=== PATIENT | male | born 1960 | race Caucasian/White ===

== ENCOUNTER 2019-03-18 10:29 | Observation (INO) ==
[2019-03-18] MEDS ORDERED: HumuLIN R SUBCUT PRN (11:53)
[2019-03-18 12:13] LABS: BASOPHILS % (AUTO) 0.5 % (0.2-1.0); EOSINOPHILS # (AUTO) 0.1 x10^3/uL (0.0-0.2); EOSINOPHILS % (AUTO) 1.4 % (0.9-2.9); HEMATOCRIT 39.7 % (42.0-54.0); HEMOGLOBIN 14.2 g/dL (13.5-18.0); LYMPHOCYTES # (AUTO) 2.1 X10^3/uL (1.3-2.9); MEAN CORPUSCULAR HEMOGLOBIN 31.4 pg (27.0-34.0); MEAN CORPUSCULAR HGB CONC 35.8 g/dL (33.0-35.0); MEAN CORPUSCULAR VOLUME 87.6 fL (80.0-100.0); MEAN PLATELET VOLUME 7.6 fL (7.4-11.0); MONOCYTES # (AUTO) 0.6 x10^3/uL (0.3-0.8); MONOCYTES % (AUTO) 8.3 % (0.0-13.0); NEUTROPHILS # (AUTO) 4.2 x10^3/uL (2.2-4.8); NEUTROPHILS % (AUTO) 59.8 % (42.0-75.0); PLATELET COUNT 242 X10^3/uL (150.0-450.0); RED BLOOD COUNT 4.53 X10^6/uL (4.7-6.0)
[2019-03-18 12:31] LABS: BLOOD UREA NITROGEN 15 mg/dL (7-18); CALCIUM 8.9 mg/dL (8.5-10.1); CARBON DIOXIDE 26.9 mmol/L (21-32); CHLORIDE 101 mmol/L (98-107); COR NA(FOR HYPERGLY) 140 mmol/L (136-145); CREATININE 0.86 mg/dL (0.70-1.30); SODIUM 139 mmol/L (136-145); TROPONIN I < 0.02 ng/mL (0-1.5); eGFR NON BLACK RACES > 60 (>60)
[2019-03-18 12:35] LABS: ALANINE AMINOTRANSFERASE 35 Units/L (12-78); ALBUMIN 3.9 g/dL (3.4-5.0); ALKALINE PHOSPHATASE 48 Units/L (46-116); ASPARTATE AMINO TRANSFERASE 15 Units/L (15-37); CKMB % 1.6 % (<4); CREATINE KINASE 62 Units/L (39-308); CREATINE KINASE MB < 1.0 ng/mL (0-4.0); TOTAL PROTEIN 7.1 g/dL (6.4-8.2)
[2019-03-18] MEDS: NS 1000 ML 1,000 ML IV SCH (13:59)
--- NOTE | 2019-03-18 14:51 | VAS ---
HISTORY: Possible TIA, hypertension, hyperlipidemia Study: Bilateral carotid Doppler ultrasound Comparison: No priors Technique: Grayscale, color and duplex Doppler ultrasound evaluation of the cervical carotid arteries is provided. Findings: Vertebral in both carotid arteries flow cephalad. A flow signal from the left vertebral is not detected. This may be on a technical basis or may simply indicate right-sided vertebral dominance. Peak systolic arterial velocity in the right ICA is 87.2 cm 2nd an ICA/CCA ratio 0.3. Peak systolic arterial velocity in the left ICA is 100.2 centimeters/second with an ICA/CCA ratio of 1.36. IMPRESSION: No hemodynamically significant stenosis is seen. Flow signal from the left vertebral artery is not detected today. This may be on a technical basis or may simply indicate right-sided vertebral dominance. Reported By:
--- NOTE | 2019-03-18 15:03 | US ---
HISTORY: Right upper quadrant pain Study: Right upper quadrant abdominal ultrasound Comparison: No priors Technique: Multiple conner scale, duplex and color flow Doppler images of the right upper quadrant were obtained. Findings: The liver is enlarged measuring 18.8 cm in length. There is diffuse fatty change.. No focal intraparenchymal mass or intrahepatic biliary ductal dilatation can be observed. The gallbladder fails to demonstrate evidence for cholelithiasis or layering sludge. The common bile duct is unremarkable measuring 1.5 mm. No pericholecystic fluid or gallbladder wall thickening can be observed. Hepatic and portal venous flow directions are normal. The right kidney appears normal in size without focal parenchymal mass or nephrolithiasis. The right kidney measurers 10.48 cm in length. Cortical thickness is 1.78 cm. Resistive index is 0.66.. No hydronephrosis or perirenal fluid can be observed. The pancreas is normal. IMPRESSION: Enlarged liver with diffuse steatosis. No liver mass or ductal ectasia is seen. Normal appearing gallbladder, pancreas and right kidney. Reported By:
--- NOTE | 2019-03-18 15:29 | CT ---
History: Paresthesias left face Exam: CT head without contrast Comparison: None Technique: Routine transaxial images were obtained through the brain without contrast. Automated dose control was utilized. Findings: The ventricles are normal. There is no intracranial hemorrhage or edema there is no extra-axial fluid collection or mass. The bones are intact. The midline structures are unremarkable. IMPRESSION: No acute intracranial abnormality seen. Reported By:
[2019-03-18 16:38] VITALS: BMI 40.4
[2019-03-18] MEDS: ASPIRIN EC 81 MG PO SCH (16:47)
--- NOTE | 2019-03-18 17:54 | DR.H&P ---
H&P - History & Physical for Day of: H&P Date: 03/18/19 - Chief Complaint Chief Complaint: left side facial numbness, weakness, dizzy - History of Present Illness History of Present Illness: PT IS 59 WM DIRECT ADMIT FROM DR RODRÍGUEZ OFFICE WI TH CO WOKE UP WITH NUMBNESS TO LEFT SIDE FACE, AROUND HIS MOUTH. PT STATES HE FELT FUNNY, DIZZY. PT CO INCREASED FATIGUE WITH EPISODES OF CHEST PAIN RELATED TO GAS. PT HAS PMH OF DM, HTN, HYPERLIPIDEMIA AND FAMILY HX OF CVD. PT IS CURRENTLY ON METFORMIN FOR BS, BP MEDICATION AND STATIN. PT REPORTS INCREASED PALPITATIONS AND SEVILLA. PT CO EPISODES OF VISION CHANGES, RELATED TO AGE. PT RECENTLY HAD ANNUAL LABS, BP HAS BEEN RUNNING HIGHER. PT HAD EKG IN OFFICE THIS AM, WITH NSR. PT ADMITTED FOR EVALUATION OF ACUTE ILLNESS. - Past Medical History Past Medical History: Anxiety, Arthritis, Diabetes, Dyslipidemia, GERD, Hypertension - Past Surgical History Surgical History: Tonsillectomy - Family History Family Medical History: [place], Hypertension - Social History Does patient currently use any type of tobacco product: No Have you used tobacco products in the last 12 months: No Type of Tobacco Use: None Does any household member use tobacco: No Alcohol Use: None Drug Use: Prescription Drugs - Medications Home Medications: levofloxacin [From Levaquin] Allergy (Verified 03/18/19 11:06) CONTINUE taking the following medications metformin 500 mg PO DAILY 03/18/19 [History] metoprolol succinate 25 mg PO DAILY 03/18/19 [History] valsartan-hydrochlorothiazide 1 tab PO DAILY 03/18/19 [History] - Review of Systems Constitutional: Weakness, Malaise Eyes: No Symptoms Reported ENT: No Symptoms Reported Respiratory: SOB with Excertion Cardiovascular: Palpitations, Edema, Light Headedness Gastrointestinal: Nausea Genitourinary: No Symptoms Reported Musculoskeletal: No Symptoms Reported Skin: No Symptoms Reported Neurological: Weakness, Numbness - Physical Exam Vital Signs: Temperature 98.0 F Pulse Rate [Left Brachial] 52 Respiratory Rate 18 Blood Pressure [Left Arm] 139/82 O2 Sat by Pulse Oximetry 97 Oriented: Normal Eyes: Normal Ear: Normal Nose: Normal Throat: Normal Respiratory: Clear Throughout Cardiovascular: Normal, Edema : Normal Auscultation: Bowel Sounds: Normal Palpation: Normal Tenderness: RUQ, Epigastric, Mild Skin: Normal Musculoskeletal: Normal Psychiatric: Anxiety Affect: Anxious Speech Pattern: Clear, Appropriate - Assessment/Plan (1) Facial paresthesia Status: Acute Plan: ADMIT, CT HEAD ON ADMISSION CE AND EKG. CXR, CAROTID ARTERY US R/O CAROTID ARTERY STENOSIS,CTA CAROTIDS PENDING ABNORMAL US RESULTS. ADMISSION LABS CBC CMP UA. BP AND CARDIAC MONITORING. OVERNIGHT PULSE OX (2) Dizziness Status: Acute (3) Atypical chest pain Status: Acute (4) Hypertension Status: Acute (5) Hyperlipidemia Status: Acute (6) Diabetes Status: Acute (7) Visual disturbance Status: Acute - Allergies Allergies/Adverse Reactions: Allergies Allergy/AdvReac Type Severity Reaction Status Date / Time levofloxacin [From Levaquin] Allergy Verified 03/18/19 11:06
[2019-03-18] MEDS ORDERED: GLUCOPHAGE PO SCH (18:00)
[2019-03-18] MEDS ORDERED: GLUCOPHAGE ONE (18:47)
[2019-03-18] MEDS: LOVENOX INJ 40 MG SYR SC SCH (18:51)
[2019-03-18] MEDS ORDERED: SNACK - Diabetic Appropriate PO SCH (20:00)
[2019-03-18] MEDS: TOPROL XL PO SCH (21:39)
[2019-03-19] MEDS ORDERED: NS 100 ML IV 100 ML IV ONE (01:16)
[2019-03-19] MEDS: NS 1000 ML 1,000 ML IV SCH ×2 (05:19→07:59)
[2019-03-19 05:25] LABS: ALANINE AMINOTRANSFERASE 34 Units/L (12-78); ALBUMIN 3.4 g/dL (3.4-5.0); ALKALINE PHOSPHATASE 50 Units/L (46-116); ASPARTATE AMINO TRANSFERASE 13 Units/L (15-37); BLOOD UREA NITROGEN 18 mg/dL (7-18); CALCIUM 8.4 mg/dL (8.5-10.1); CHLORIDE 103 mmol/L (98-107); COR NA(FOR HYPERGLY) 141 mmol/L (136-145); SODIUM 140 mmol/L (136-145); TOTAL PROTEIN 6.5 g/dL (6.4-8.2); eGFR NON BLACK RACES > 60 (>60)
[2019-03-19 05:29] LABS: BASOPHILS % (AUTO) 0.5 % (0.2-1.0); EOSINOPHILS # (AUTO) 0.1 x10^3/uL (0.0-0.2); EOSINOPHILS % (AUTO) 1.8 % (0.9-2.9); HEMOGLOBIN 13.7 g/dL (13.5-18.0); LYMPHOCYTES # (AUTO) 2.3 X10^3/uL (1.3-2.9); LYMPHOCYTES % (AUTO) 28.2 % (21.0-51.0); MEAN CORPUSCULAR HEMOGLOBIN 31.4 pg (27.0-34.0); MEAN CORPUSCULAR VOLUME 89.6 fL (80.0-100.0); MEAN PLATELET VOLUME 8.8 fL (7.4-11.0); MONOCYTES # (AUTO) 0.7 x10^3/uL (0.3-0.8); MONOCYTES % (AUTO) 8.6 % (0.0-13.0); NEUTROPHILS # (AUTO) 4.9 x10^3/uL (2.2-4.8); NEUTROPHILS % (AUTO) 60.9 % (42.0-75.0); PLATELET COUNT 238 X10^3/uL (150.0-450.0); RED BLOOD COUNT 4.36 X10^6/uL (4.7-6.0); WHITE BLOOD COUNT 8.1 X10^3/uL (3.6-10.0)
[2019-03-19] MEDS ORDERED: MAGNESIUM SULFATE 1 GRAM/100 mL PREMIX 1 GM/100 ML BAG IV PRN (07:15)
[2019-03-19] MEDS ORDERED: K-RIDER 10 MEQ/NS 100 ML 10 MEQ/100 ML BAG IV PRN (07:15)
[2019-03-19] MEDS ORDERED: KLOR-CON PO PRN (07:15)
[2019-03-19] MEDS ORDERED: POTASSIUM CHLORIDE LIQ 20 MEQ UDC PO PRN (07:15)
[2019-03-19] MEDS ORDERED: K-DUR TAB 20 MEQ PO PRN (07:15)
[2019-03-19] MEDS ORDERED: MICRO K EXTEN CAP 10 MEQ PO PRN (07:15)
[2019-03-19] MEDS ORDERED: POTASSIUM CHL 40 MEQ/NS 0.45% 500 ML IV PRN (07:15)
[2019-03-19] MEDS ORDERED: POTASSIUM CHL 60 MEQ/NS 0.45% 500 ML IV PRN (07:15)
[2019-03-19 07:36] LABS: CKMB % 1.8 % (<4); CREATINE KINASE 57 Units/L (39-308); CREATINE KINASE MB < 1.0 ng/mL (0-4.0); TROPONIN I < 0.02 ng/mL (0-1.5)
[2019-03-19] MEDS: ASPIRIN EC 81 MG PO SCH ×3 (07:45→08:01)
[2019-03-19] MEDS: HYDROCHLOROTHIAZIDE 25 MG TAB PO SCH ×2 (07:45→08:01)
[2019-03-19] MEDS: DIOVAN TAB 160 MG PO SCH ×2 (07:46→08:01)
[2019-03-19] MEDS ORDERED: K-DUR TAB 20 MEQ PO ONE (07:47)
[2019-03-19] MEDS: TOPROL XL PO SCH ×2 (07:48→08:02)
[2019-03-19] MEDS ORDERED: NORVASC TAB 5 MG PO SCH (09:00)
[2019-03-19] MEDS: LOVENOX INJ 40 MG SYR SC SCH (09:04)
--- NOTE | 2019-03-19 12:23 | CT ---
CTA neck Indication: TIA, hypertension, hyperlipidemia Technique: Helical CT images of the neck were obtained with IV contrast. Reformatted images in the coronal and sagittal planes and 3D MIP images were also generated for review. Comparison: None Findings: There is a normal three great vessel arch. There is minimal calcification of the proximal left internal carotid artery. The common and cervical portions of the internal and external carotid arteries otherwise appear widely patent bilaterally. The vertebral arteries are codominant and also within normal limits. Within the limits of an arterial phase exam, the soft tissues of the neck appear grossly normal. Limited images through the brain and skull base show no acute abnormality. Visualized upper lungs are clear. Review of bone windows demonstrate mild degenerative changes of the cervical spine without acute or aggressive osseous abnormality. Impression: Minimal calcification of the proximal left ICA. Otherwise, essentially unremarkable CT angiogram of the neck. Reported By:
[2019-03-19 14:40] VITALS: BP 174/98
== END 2019-03-19 14:30 | disposition home or self-care (01) ==
LOC: MED/SURG
PROVIDERS: ADMIT Internal Medicine; ATTEND Internal Medicine
DX: R53.1 Weakness; R07.89 Other chest pain; R42 Dizziness and giddiness; R16.0 Hepatomegaly, not elsewhere classified; H53.8 Other visual disturbances; E11.65 Type 2 diabetes mellitus with hyperglycemia; R20.0 Anesthesia of skin; I10 Essential (primary) hypertension; E78.2 Mixed hyperlipidemia
CPT/HCPCS: 36415; 70450; 70498; 76705; 80053; 82550; 82553; 82607; 82728; 82746; 83540; 83735; 84466; 84484; 85025; 93005; 93880; 96367; A4222; G0378; J7030; J7050